=== PATIENT | female | born 1950 | race Caucasian/White ===

== ENCOUNTER → 2021-09-05 | Outpatient (CLI) | payer OTHER | LOC: SJCVC 13:56 | PROVIDERS: ATTEND Internal Medicine | DX: R94.31 Abnormal electrocardiogram [ECG] [EKG] (principal); I25.10 Atherosclerotic heart disease of native coronary artery without angina pectoris; I12.9 Hypertensive chronic kidney disease with stage 1 through stage 4 chronic kidney disease, or unspecified chronic kidney disease; N18.2 Chronic kidney disease, stage 2 (mild); R55 Syncope and collapse; E78.5 Hyperlipidemia, unspecified; I73.9 Peripheral vascular disease, unspecified; F32.9 Major depressive disorder, single episode, unspecified; Z88.0 Allergy status to penicillin; Z88.8 Allergy status to other drugs, medicaments and biological substances; Z79.82 Long term (current) use of aspirin; Z79.899 Other long term (current) drug therapy; Z87.891 Personal history of nicotine dependence ==

== ENCOUNTER → 2021-09-12 | Outpatient (CLI) | payer OTHER | LOC: SJCVCIMAG 13:27 | PROVIDERS: ATTEND Internal Medicine | DX: I65.23 Occlusion and stenosis of bilateral carotid arteries (principal); I70.8 Atherosclerosis of other arteries; I70.202 Unspecified atherosclerosis of native arteries of extremities, left leg; I12.9 Hypertensive chronic kidney disease with stage 1 through stage 4 chronic kidney disease, or unspecified chronic kidney disease; N18.2 Chronic kidney disease, stage 2 (mild); I25.10 Atherosclerotic heart disease of native coronary artery without angina pectoris; E78.5 Hyperlipidemia, unspecified; F03.90 Unspecified dementia, unspecified severity, without behavioral disturbance, psychotic disturbance, mood disturbance, and anxiety; F41.8 Other specified anxiety disorders; R55 Syncope and collapse; R53.83 Other fatigue; E72.11 Homocystinuria; F17.200 Nicotine dependence, unspecified, uncomplicated; Z88.0 Allergy status to penicillin; Z88.8 Allergy status to other drugs, medicaments and biological substances; Z79.82 Long term (current) use of aspirin; Z79.899 Other long term (current) drug therapy; M79.604 Pain in right leg; M79.605 Pain in left leg ==

== ENCOUNTER → 2021-09-26 | Outpatient (CLI) | payer OTHER | LOC: SJCVCIMAG 10:25 | PROVIDERS: ATTEND Internal Medicine | DX: I25.10 Atherosclerotic heart disease of native coronary artery without angina pectoris (principal); R55 Syncope and collapse; I10 Essential (primary) hypertension; Z79.82 Long term (current) use of aspirin; Z79.899 Other long term (current) drug therapy; Z87.891 Personal history of nicotine dependence ==

== ENCOUNTER → 2021-09-28 | Outpatient (CLI) | payer OTHER ==
[~2021-09-28] MED LIST: ASA81BEC PO; ATIVAN1 M1 PO; FOLIC ACID1 MG PO; LISINOPRIL1 GM PO; MELATONIN1 MG/1 ML PO; PAROXETINE HCL20 MG PO; ROSUVASTATIN CA10 MG PO; TOPROL XL25 MG PO
== END ==
LOC: SJCVCIMAG 10:30
PROVIDERS: ATTEND Internal Medicine
DX: I08.0 Rheumatic disorders of both mitral and aortic valves (principal); I13.10 Hypertensive heart and chronic kidney disease without heart failure, with stage 1 through stage 4 chronic kidney disease, or unspecified chronic kidney disease; N18.30 Chronic kidney disease, stage 3 unspecified; E78.5 Hyperlipidemia, unspecified; I65.23 Occlusion and stenosis of bilateral carotid arteries; I73.9 Peripheral vascular disease, unspecified; R55 Syncope and collapse; F17.200 Nicotine dependence, unspecified, uncomplicated; M48.061 Spinal stenosis, lumbar region without neurogenic claudication; E55.9 Vitamin D deficiency, unspecified; R53.83 Other fatigue; Z95.5 Presence of coronary angioplasty implant and graft; Z98.890 Other specified postprocedural states; Z79.82 Long term (current) use of aspirin; Z79.899 Other long term (current) drug therapy; Z88.0 Allergy status to penicillin; Z88.1 Allergy status to other antibiotic agents; Z88.5 Allergy status to narcotic agent; Z88.8 Allergy status to other drugs, medicaments and biological substances

== ENCOUNTER → 2021-09-29 | Outpatient (CLI) | payer OTHER ==
[~2021-09-29] VITALS: Ht 162.6 cm; Wt 71.2 kg
[~2021-09-29] MED LIST changes: +ASPIRIN EC325 M1 PO; +EFFIENT10 MG PO; +LISINOPRIL20 MG PO
[2021-09-29 07:45] VITALS: BP 127/55
[2021-09-29 13:21] LABS: HEMATOCRIT 39.1 % (37.0-47.0); HEMOGLOBIN 12.6 gm/dL (12.0-15.0); MCH 29.4 pg (26.0-34.0); MCHC 32.3 g/dL (28.0-37.0); MCV 91.1 fL (80.0-100.0); RBC 4.3 mil/uL (4.20-5.00); RDW 14.4 % (10.5-14.5); WBC 6.6 thou/uL (4.0-11.0)
[2021-09-29 13:28] LABS: URINE BILIRUBIN NEGATIVE (Negative); URINE BLOOD NEGATIVE (Negative); URINE CLARITY CLEAR; URINE COLOR YELLOW; URINE GLUCOSE-RANDOM* NEGATIVE (Negative); URINE KETONES NEGATIVE (Negative); URINE LEUKOCYTES-REFLEX NEGATIVE (Negative); URINE NITRITE-REFLEX NEGATIVE (Negative); URINE PROTEIN (DIPSTICK) NEGATIVE (Negative); URINE SPECIFIC GRAVITY <= 1.005 (1.005-1.035); URINE UROBILINOGEN 0.2 E.U./dl (0.2-1.0)
[2021-09-29 13:35] LABS: APTT 25.3 Seconds (24.5-32.8); PROTIME 10.9 Seconds (10.5-12.1)
[2021-09-29 13:39] LABS: ALBUMIN 3.9 g/dL (3.4-5.0); CALCIUM 8.6 mg/dL (8.5-10.1); CREATININE 1.4 mg/dL (0.6-1.0); POTASSIUM 3.9 mmol/L (3.5-5.1); TOTAL BILIRUBIN 0.6 mg/dL (0.2-1.0); TOTAL PROTEIN 7.5 g/dL (6.4-8.2)
== END | disposition home or self-care (01) ==
LOC: CATH 06:55
PROVIDERS: Surgery Vascular Surgery; ATTEND Nuclear Medicine Nuclear Cardiology
DX: I65.23 Occlusion and stenosis of bilateral carotid arteries (principal); I70.1 Atherosclerosis of renal artery; I73.9 Peripheral vascular disease, unspecified; R55 Syncope and collapse; I12.9 Hypertensive chronic kidney disease with stage 1 through stage 4 chronic kidney disease, or unspecified chronic kidney disease; N18.30 Chronic kidney disease, stage 3 unspecified; I25.10 Atherosclerotic heart disease of native coronary artery without angina pectoris; E78.5 Hyperlipidemia, unspecified; G47.00 Insomnia, unspecified; Z98.890 Other specified postprocedural states; Z79.899 Other long term (current) drug therapy; Z87.891 Personal history of nicotine dependence; Z20.822 Contact with and (suspected) exposure to COVID-19

== ENCOUNTER → 2021-10-04 | Outpatient (CLI) | payer OTHER ==
[2021-10-04 16:20] LABS: HEMOGLOBIN 12.8 gm/dL (12.0-15.0); RDW 14.1 % (10.5-14.5)
[2021-10-04 16:21] LABS: ABSOLUTE NEUTROPHILS 4.3 thou/uL (1.4-8.2); BASOPHILS 1.1 % (0.0-2.0); EOSINOPHILS 3.6 % (0.0-3.0); HEMATOCRIT 39.4 % (37.0-47.0); LYMPHOCYTES 24.5 % (24.0-44.0); MCH 29.6 pg (26.0-34.0); MCHC 32.5 g/dL (28.0-37.0); MCV 91.2 fL (80.0-100.0); MONOCYTES 5.7 % (1.0-8.0); PLATELET COUNT 298 thou/uL (150-400); POLYS 65.1 % (36.0-66.0); RBC 4.32 mil/uL (4.20-5.00); WBC 6.6 thou/uL (4.0-11.0)
[2021-10-04 16:30] LABS: URINE BILIRUBIN NEGATIVE (Negative); URINE BLOOD TRACE (Negative); URINE CLARITY CLEAR; URINE COLOR YELLOW; URINE GLUCOSE-RANDOM* NEGATIVE (Negative); URINE KETONES NEGATIVE (Negative); URINE LEUKOCYTES-REFLEX NEGATIVE (Negative); URINE NITRITE-REFLEX NEGATIVE (Negative); URINE PROTEIN (DIPSTICK) NEGATIVE (Negative); URINE UROBILINOGEN 0.2 E.U./dl (0.2-1.0)
== END ==
LOC: PAC 11:13
PROVIDERS: ATTEND Surgery Vascular Surgery
DX: I77.9 Disorder of arteries and arterioles, unspecified (principal)

== ENCOUNTER 2021-10-07 06:45 | Inpatient (IN) | payer OTHER ==
[~2021-10-07] VITALS: Ht 162.6 cm; Wt 71.7 kg
[2021-10-13] VITALS (15 sets, daily range): BP systolic 98–138; BP diastolic 33–52
--- NOTE | 2021-10-13 14:49 | NUR ---
1245-RECEIVED PT FROM PACU VIA BED TO 248. BELONGINGSM PLACED IN CLOSET.ORIENTED TO ROOM.--VW 1450-SON IN TO VISIT.PT ASKING FOR NICOTENE GUM/PATCH. SCHEDULED ATIVAN GIVEN. NAUSEA RESOLVED.--VW
[2021-10-14] VITALS (16 sets, daily range): BP systolic 128–160; BP diastolic 36–104
[2021-10-14 04:11] LABS: HEMATOCRIT 30.5 % (37.0-47.0); HEMOGLOBIN 10.3 gm/dL (12.0-15.0); MCH 30.6 pg (26.0-34.0); MCHC 33.7 g/dL (28.0-37.0); MCV 90.9 fL (80.0-100.0); RBC 3.36 mil/uL (4.20-5.00); RDW 14.3 % (10.5-14.5); WBC 9.5 thou/uL (4.0-11.0)
[2021-10-14 04:12] LABS: CALCIUM 8.1 mg/dL (8.5-10.1); CREATININE 1.2 mg/dL (0.6-1.0); POTASSIUM 4.7 mmol/L (3.5-5.1)
--- NOTE | 2021-10-14 11:43 | NUR ---
ALERT AND ORIENTED WITH OCCASIONAL CONFUSION AND CAN BE IMPULSIVE AT TIMES. VITALS STABLE. UP TO CHAIR WITH MINIMAL ASSISTANCE. ABLE TO VOID IN THE TOILET. TOLORATED DIET W/O NAUSEA, CLEARED BY S.T. OCASSIONALLY YELLS OUT TO NURSE TRYING TO HAVE A CONVERSATION FROM THE ROOM. REDIRECTED SEVERAL TIMES TO STAY IN THE CHAIR AND CALL FOR ASSISTANCE NEEDED. CHAIR ALARM IN PLACE. PATIENT GETTING UP W/O USING CALL LIGHT. STATES SHE WANTS TO GET DRESSED SO SHE CAN GO HOME.
--- NOTE | 2021-10-14 13:38 | NUR ---
DC ORDERS RECEIVED, CALL PLACED TO PATIENT'S SON REGARDING DC AND TRANSPORTATION. SON TALKED TO PATIENT ON THE PHONE. PATIENT BELONGINGS GIVEN BACK TO PATIENT AND DRESSED READY TO GO. PER SON RIDE IS ABOUT 45MINUTES AWAY. PATIENT PACING IN THE ROOM AND BY THE DOOR AND REDIRECTED MULTIPLE TIMES TO SIT BACK IN THE ROOM AND WAIT FOR HER RIDE. SCHEDULED LORAZEPAM ADMINISTERED.
--- NOTE | 2021-10-14 15:42 | NUR ---
INITIAL ASSESSMENT/DISCHARGE NOTE: SW reveiwed chart and spoke with nursing. Pt was admitted from home following CTS procedure. Pt with hx carotid stenosis. Pt to discharge home today. SW met with pt at bedside. Introduced role of SW. Pt is alert/orientated x 4. Pt reports she lives at home alone. Prior to admission, pt was independent with ADLs. No use of DME. No hx of HH or post-acute placement. Pt's PCP is Dr. Efrain Young. No discharge needs identified. Pt will have transportation home when discharged. SW is available to assist should needs arise.
--- NOTE | 2021-10-15 10:23 | O ---
[facility] [place] [address] OPERATIVE REPORT Name: ADAM ARGUETA Room #: 249-P [facility] IN M.R.#: [id number] Admission: 10/13/21 Attend Phys: Farhat Phillip MD Discharge: 10/14/21 Date of : 50 Report #: [id number] THIS REPORT FOR: cc: Efrain Young MD, Steven A. MD Forman,Farhat Cody MD ~ DATE OF SERVICE: 10/13/2021 PREOPERATIVE DIAGNOSIS: Right carotid artery stenosis. POSTOPERATIVE DIAGNOSIS: Right carotid artery stenosis. OPERATION: Transcarotid arterial revascularization, right. SURGEONS: Dr. Farhat Phillip and Dr. Jermain Vega. PROJECT TECHNICIAN: LUKAS Almaraz. ANESTHESIA: General. INDICATIONS: The patient is a 71-year-old with bilateral carotid artery disease. The patient presents with dizziness and near syncope. Right side has a 98% internal carotid stenosis and the left side has a 90% stenosis. FINDINGS AND TECHNIQUE: After general anesthesia was established, an incision was made in the right neck to expose the common carotid artery. The artery was exposed and controlled and a 5-0 Prolene pursestring suture was made in it. Separately, the left femoral vein was identified with the ultrasound and entered with the arterial needle and then using Seldinger technique, the venous component of the TCAR AV fistula was placed. Then, 10,000 units of heparin were given through the pursestring suture. The arterial needle was placed in the common carotid and using Seldinger technique, the arterial component of the AV fistula was placed. The AV fistula was activated and when the ACT was satisfactory, inflow through the common carotid was occluded. An arteriogram was taken, which identified the lesion. Guidewire was placed into the internal carotid and then the predilatation angioplasty was performed with a 4.5 x 30 Cordis balloon. A 10 x 40 Enroute stent was placed and this was followed by post-stent dilatation using 6 x 30 Cordis balloon. The requisite time was allowed to elapse and then the final arteriogram was [facility] [address] [place] [address] OPERATIVE REPORT Name: ADAM ARGUETA Room #: 249-P [facility] IN ..#: [id number] Admission: 10/13/21 Attend Phys: Farhat Phillip MD Discharge: 10/14/21 Date of : 50 Report #: [id number] taken. This showed good correction of the lesion. Forward flow was reestablished and the AV fistula was dismantled. The arterial component was removed and the pursestring suture was pulled tight and the reinforcing suture was placed. The venous component was removed from the femoral vein and pressure was applied to the groin. Protamine was given to reverse the heparin. Hemostasis was ascertained in the neck wound and then it was closed in layers. The patient was taken to the recovery area in good condition having tolerated the procedure well, where her neurologic progress was monitored. All counts were reported as correct. <ELECTRONICALLY SIGNED> By: Farhat Phillip MD 10/15/21 1023 [id number] [id number] Farhat Phillip MD /nt
== END 2021-10-14 14:30 | disposition home or self-care (01) | DRG 36 ==
LOC: OR 06:45 → EDSTATUS 11:20 → PRE 11:24 → TBA 10-13 06:32 → PRE 10-13 09:56 → ICU 10-13 12:38 → PRE 10-13 12:46 → ICU 10-14 14:30
PROVIDERS: Physician Assistant; ADMIT Surgery Vascular Surgery; ATTEND Surgery Vascular Surgery
PROC: 037K3DZ Dilation of Right Internal Carotid Artery with Intraluminal Device, Percutaneous Approach (ICD-10-PCS; principal; 2021-10-13)
DX: I65.23 Occlusion and stenosis of bilateral carotid arteries (principal); Z20.822 Contact with and (suspected) exposure to COVID-19; E78.5 Hyperlipidemia, unspecified; I73.9 Peripheral vascular disease, unspecified; I25.10 Atherosclerotic heart disease of native coronary artery without angina pectoris; G47.00 Insomnia, unspecified; N18.30 Chronic kidney disease, stage 3 unspecified; I12.9 Hypertensive chronic kidney disease with stage 1 through stage 4 chronic kidney disease, or unspecified chronic kidney disease; I70.1 Atherosclerosis of renal artery; Z60.2 Problems related to living alone; Z88.0 Allergy status to penicillin; Z79.899 Other long term (current) drug therapy; Z79.82 Long term (current) use of aspirin; Z88.8 Allergy status to other drugs, medicaments and biological substances; Z95.5 Presence of coronary angioplasty implant and graft; Z90.711 Acquired absence of uterus with remaining cervical stump
CPT/HCPCS: 10078; 47375; 48889; 50010; 50101; 50386; 50403; 50455; 51301; 52287; 54118; 56524; 56526; 56528; 56531; 62110; 62900; 65040; 70005

== ENCOUNTER → 2021-12-09 | Outpatient (CLI) | payer OTHER | LOC: SJCVCIMAG 12-05 08:39 | PROVIDERS: ATTEND Nuclear Medicine Nuclear Cardiology | DX: I65.23 Occlusion and stenosis of bilateral carotid arteries (principal); I73.9 Peripheral vascular disease, unspecified; I70.8 Atherosclerosis of other arteries; Z95.828 Presence of other vascular implants and grafts ==

== ENCOUNTER → 2021-12-14 | Outpatient (CLI) | payer OTHER | LOC: SJCVC 15:20 | PROVIDERS: ATTEND Nuclear Medicine Nuclear Cardiology | DX: I77.9 Disorder of arteries and arterioles, unspecified (principal); I73.9 Peripheral vascular disease, unspecified; I25.10 Atherosclerotic heart disease of native coronary artery without angina pectoris; E78.5 Hyperlipidemia, unspecified; I12.9 Hypertensive chronic kidney disease with stage 1 through stage 4 chronic kidney disease, or unspecified chronic kidney disease; N18.30 Chronic kidney disease, stage 3 unspecified; F17.210 Nicotine dependence, cigarettes, uncomplicated; Z82.49 Family history of ischemic heart disease and other diseases of the circulatory system; Z88.8 Allergy status to other drugs, medicaments and biological substances; Z88.1 Allergy status to other antibiotic agents; Z79.82 Long term (current) use of aspirin; Z79.899 Other long term (current) drug therapy ==